=== PATIENT | male | born 1990 | race Asian ===

== ENCOUNTER 2018-04-29 11:12 | Emergency (ER) | payer OTHER ==
[~2018-04-29] VITALS: Ht 182.9 cm; Wt 74.4 kg
[2018-04-29 11:50] VITALS: BP 144/85; TEMP 98.8
== END 2018-04-29 11:50 | disposition home or self-care (01) ==
LOC: ED 11:12
DX: K04.7 Periapical abscess without sinus (principal)
CPT/HCPCS: 99281

== ENCOUNTER 2020-08-24 02:05 | Emergency (ER) | payer OTHER ==
[~2020-08-24] VITALS: Ht 182.9 cm; Wt 72.6 kg
[2020-08-24 02:05] VITALS: BP 152/94; TEMP 98
== END 2020-08-24 02:33 | disposition still patient (30) ==
LOC: ED 02:15
DX: S02.5XXA Fracture of tooth (traumatic), initial encounter for closed fracture (principal); S02.401A Maxillary fracture, unspecified side, initial encounter for closed fracture; S02.601A Fracture of unspecified part of body of right mandible, initial encounter for closed fracture; F17.290 Nicotine dependence, other tobacco product, uncomplicated; Y00.XXXA Assault by blunt object, initial encounter; Y92.89 Other specified places as the place of occurrence of the external cause
CPT/HCPCS: 99283; J0690; J1885; J2405; J3411; J3475; J3490

== ENCOUNTER 2020-08-24 04:31 | Emergency (ER) | payer OTHER ==
[~2020-08-24] VITALS: Ht 182.9 cm; Wt 72.6 kg
[2020-08-24 05:30] LABS: PLATELET COUNT 250 K/uL (142-355)
[2020-08-24 05:41] LABS: POTASSIUM 3.3 mmol/L (3.6-5.2)
[2020-08-24 05:49] LABS: PARTIAL THROMBOPLASTIN TIME 27.2 SECONDS (24.5-33.6)
[2020-08-24 06:45] VITALS: BP 110/50; TEMP 97.9
== END 2020-08-24 06:45 | disposition home or self-care (01) ==
LOC: ED 04:31
PROVIDERS: Hospitalist
DX: S02.5XXA Fracture of tooth (traumatic), initial encounter for closed fracture (principal); S02.401A Maxillary fracture, unspecified side, initial encounter for closed fracture; S02.601A Fracture of unspecified part of body of right mandible, initial encounter for closed fracture; F17.290 Nicotine dependence, other tobacco product, uncomplicated
CPT/HCPCS: 36415; 80048; 80320; 85027; 85610; 85730; 96365; 96366; 96375; 99284; J0690; J1885; J2270; J2405; J3411; J3475; J3490